=== PATIENT | male | born 1990 | race Caucasian/White ===

== ENCOUNTER 2020-10-29 23:46 | Emergency (ER) | payer SELFPAY ==
[~2020-10-29] VITALS: Ht 170.2 cm; Wt 82.0 kg
[2020-10-29 23:57] VITALS: BP 138/92
[2020-10-30] MEDS ORDERED: ONDANSETRON 4MG ODT PO STA (00:57)
[2020-10-30 01:25] LABS: BASOPHILS % 0.4 % (0.0-2.0); EOSINOPHILS % 1.6 % (0.0-5.0); HEMATOCRIT. 42.9 % (42.0-52.0); LYMPHOCYTES % 32.7 % (20.0-50.0); MEAN CORPUSCULAR HEMOGLOBIN 32.5 pg (28.0-32.0); MEAN CORPUSCULAR VOLUME 92.9 fL (80.0-94.0); MEAN PLATELET VOLUME 8.6 fl (7.4-10.4); MONOCYTES % 7.6 % (2.0-8.0); NEUTROPHILS % 57.7 % (40.0-76.0); PLATELET 237 x1000/uL (130-400); RED BLOOD CELL COUNT 4.62 mill/uL (4.7-6.1); RED CELL DISTRIBUTION WIDTH 15.4 % (11.6-14.6)
[2020-10-30 01:32] LABS: CHLORIDE 107 mEq/L (98-107)
== END 2020-10-30 03:50 | disposition home or self-care (01) ==
LOC: ER 23:46
DX: R07.89 Other chest pain (principal); R11.10 Vomiting, unspecified; J45.909 Unspecified asthma, uncomplicated
CPT/HCPCS: 36415; 71045; 80053; 85025; 93005; 99285; Q0162

== ENCOUNTER 2020-11-19 06:01 | Emergency (ER) | payer SELFPAY ==
[~2020-11-19] VITALS: Ht 167.6 cm; Wt 90.0 kg
[2020-11-19] MEDS ORDERED: ONDANSETRON HCL 4MG TABLET PO ONE (07:15)
[2020-11-19] MEDS ORDERED: IBUPROFEN 800MG TABLET PO ONE (07:15)
[2020-11-19] MEDS ORDERED: ACETAMINOPHEN 325MG TABLET PO ONE (07:15)
[2020-11-19 08:44] VITALS: BP 158/118
== END 2020-11-19 09:41 | disposition home or self-care (01) ==
LOC: ER 06:01
DX: B34.9 Viral infection, unspecified (principal); Z03.818 Encounter for observation for suspected exposure to other biological agents ruled out
CPT/HCPCS: 71045; 99284; C9803; Q0162; U0003

== ENCOUNTER 2022-12-05 18:41 | Emergency (ER) | payer SELFPAY ==
[~2022-12-05] VITALS: Ht 167.6 cm; Wt 69.0 kg
[2022-12-05 18:48] VITALS: BP 159/99
== END 2022-12-05 23:04 | disposition left against medical advice (07) ==
LOC: ER 18:41
DX: Z53.21 Procedure and treatment not carried out due to patient leaving prior to being seen by health care provider (principal)
CPT/HCPCS: 93005

== ENCOUNTER 2022-12-18 10:29 | Emergency (ER) | payer SELFPAY ==
[~2022-12-18] VITALS: Ht 175.3 cm; Wt 77.5 kg
[2022-12-18 10:39] VITALS: BP 148/114
[2022-12-18] MEDS ORDERED: zoloft (10:39)
[2022-12-18] MEDS ORDERED: seroquel (10:39)
== END 2022-12-18 11:04 ==
LOC: ER 10:31
DX: R06.02 Shortness of breath (principal); Z00.00 Encounter for general adult medical examination without abnormal findings; F41.9 Anxiety disorder, unspecified
CPT/HCPCS: 99283